=== PATIENT | female | born 1980 | race Two or more races ===

== ENCOUNTER 2018-07-21 00:41 | Inpatient (IN) | payer OTHER ==
[~2018-07-21] VITALS: Ht 162.6 cm; Wt 69.9 kg
[2018-07-21] MEDS ORDERED: PRENATAL TABLE1 EACH PO (00:56)
[2018-07-21] MEDS ORDERED: ASA81 MG PO (00:57)
== END 2018-07-21 13:41 | disposition left against medical advice (07) | DRG 780 ==
LOC: OBS/DEL 00:41 → LDR 09:06
PROC: BY4FZZZ Ultrasonography of Third Trimester, Single Fetus (ICD-10-PCS; principal; 2018-07-21)
PROC: 4A1HXCZ Monitoring of Products of Conception, Cardiac Rate, External Approach (ICD-10-PCS; 2018-07-21)
DX: O47.03 False labor before 37 completed weeks of gestation, third trimester (principal)

== ENCOUNTER 2018-08-02 08:13 | Outpatient (CLI) | payer OTHER ==
[~2018-08-02 08:13] MED LIST: ASA81 MG PO; PRENATAL TABLE1 EACH PO
== END 2018-08-02 08:22 | disposition home or self-care (01) ==
LOC: EDBD 08:13 → LAB 08:13
DX: Z34.03 Encounter for supervision of normal first pregnancy, third trimester (principal)

== ENCOUNTER → 2018-09-07 08:27 | Outpatient (CLI) | payer OTHER | END | disposition home or self-care (01) | LOC: EDBD 08:27 → LAB 08:27 | DX: N30.00 Acute cystitis without hematuria (principal) ==

== ENCOUNTER 2018-09-21 15:06 | Outpatient (CLI) | payer OTHER | END 2018-09-21 15:12 | disposition home or self-care (01) | LOC: LAB 15:06 | DX: Z34.03 Encounter for supervision of normal first pregnancy, third trimester (principal) ==

== ENCOUNTER 2018-10-09 20:30 | Inpatient (IN) | payer OTHER ==
[~2018-10-09] VITALS: Ht 160 cm; Wt 165.0 kg
== END 2018-10-12 18:08 | disposition home or self-care (01) | DRG 807 ==
LOC: LDR 20:30 → OB/GYN 10-11 01:07
PROC: 4A1HXCZ Monitoring of Products of Conception, Cardiac Rate, External Approach (ICD-10-PCS; 2018-10-09)
PROC: 10E0XZZ Delivery of Products of Conception, External Approach (ICD-10-PCS; principal; 2018-10-10)
PROC: 4A033R1 Measurement of Arterial Saturation, Peripheral, Percutaneous Approach (ICD-10-PCS; 2018-10-10)
DX: O80 Encounter for full-term uncomplicated delivery (principal); Z37.0 Single live birth; Z3A.40 40 weeks gestation of pregnancy